=== PATIENT | male | born 1990 | race American Indian/Alaskan Native ===

== ENCOUNTER 2016-09-15 21:55 | Emergency (ER) | payer MEDICAID, OTHER ==
[2016-09-15 22:49] VITALS: BMI 36.9
[2016-09-15 23:02] VITALS: RESP 16; TEMP 98.4
[2016-09-15] MEDS ORDERED: Albuterol-Ipratrop 3 mg / 0.5 (3 ml) UD IH STA (23:03)
[2016-09-15] MEDS ORDERED: Dexamethasone 4 mg/1 ml IVP STA (23:03)
[2016-09-15] MEDS ORDERED: Azithromycin 500MG/NS 250ml 250 ML IVPB STA (23:03)
[2016-09-15] MEDS ORDERED: cefTRIAXone 1 gm 100 ML IVPB STA (23:03)
--- NOTE | 2016-09-15 23:08 | ED PDOC ---
Arrival/HPI - General Chief Complaint: ENT Problem Time Seen by Provider: 09/15/16 23:02 Historian: Patient - History of Present Illness Narrative History of Present Illness (Text): 09/15/16 23:04 26 y/o male, no significant, chronic smoker, nkda, c/o coughing and throat pain x 2 days. Pt. stated that he has excessive coughing with congestion started yesterday, voice started to be gone and throat pain started today, tmax 102F, no recent traveling, no bodyache or joint pain, no rash, no night sweat, no dizziness, no change in vision, no rash, no night sweat, no other medical or psychological complaints. Past Medical History - Provider Review Nursing Documentation Reviewed: Yes - Infectious Disease Hx of Infectious Diseases: None - Tetanus Immunization Tetanus Immunization: Unknown - Past Medical History Past Medical History: No Previous - Cardiac Hx Cardiac Disorders: No - Pulmonary Hx Respiratory Disorders: No - Neurological Hx Neurological Disorder: No - HEENT Hx HEENT Disorder: No - Renal Hx Renal Disorder: No - Endocrine/Metabolic Hx Endocrine Disorders: No - Hematological/Oncological Hx Blood Disorders: No - Integumentary Hx Dermatological Disorder: No - Musculoskeletal/Rheumatological Hx Musculoskeletal Disorders: No - Gastrointestinal Hx Gastrointestinal Disorders: No - Genitourinary/Gynecological Hx Genitourinary Disorders: No - Psychiatric Hx Psychophysiologic Disorder: No Hx Substance Use: No - Past Surgical History Past Surgical History: No Previous - Anesthesia Hx Anesthesia: No - Suicidal Assessment Feels Threatened In Home Enviroment: No Family/Social History - Physician Review Nursing Documentation Reviewed: Yes Family/Social History: Unknown Family HX Smoking Status: Current Some Days Smoker Hx Alcohol Use: Yes Hx Substance Use: No Hx Substance Use Treatment: No Allergies/Home Meds Allergies/Adverse Reactions: Allergies No Known Allergies Allergy (Verified 09/15/16 22:48) Review of Systems - Review of Systems Constitutional: Fevers. absent: Fatigue ENT: Sore Throat. absent: Rhinorrhea, Epistaxis Respiratory: Cough, Sputum. absent: SOB, Wheezing Cardiovascular: absent: Chest Pain, Palpitations, Edema Gastrointestinal: absent: Abdominal Pain, Diarrhea, Nausea, Vomiting Skin: absent: Rash, Pruritis, Skin Lesions Neurological: absent: Headache, Dizziness, Focal Weakness, Gait Changes, Speech Changes, Facial Droop, Disequilibrium, Seizure Physical Exam Vital Signs Reviewed: Yes Vital Signs Temp Pulse Resp BP Pulse Ox 09/15/16 23:01 98.4 F 75 16 124/71 96 Temperature: Afebrile Blood Pressure: Normal Pulse: Regular Respiratory Rate: Normal Appearance: Positive for: Well-Appearing, Non-Toxic, Uncomfortable Pain Distress: Severe Mental Status: Positive for: Alert and Oriented X 3 - Systems Exam Head: Present: Atraumatic, Normocephalic Pupils: Present: PERRL Extroacular Muscles: Present: EOMI Conjunctiva: Present: Normal Ears: Present: NORMAL TM, Normal Canal. No: Erythema Mouth: Present: Moist Mucous Membranes Pharnyx: Present: ERYTHEMA. No: EXUDATE, TONSILS ENLARGED, Peritonsilar Swelling, Uvular Deviation, Muffled/Hoarse Voice, Strider, Soft Palate/Uvular Edema Nose (External): Present: Atraumatic. No: Abrasion, Contusion, Lesions Nose (Internal): Present: Normal Inspection, No Active Bleeding. No: Rhinorrhea , Septal Hematoma, Epistaxis Neck: Present: Normal Range of Motion Respiratory/Chest: Present: Clear to Auscultation, Good Air Exchange, Wheezes, Decreased Breath Sounds, Rhonchi, Other (there is wheezing with decrease aeration and rhonchi on the rt. sided lung). No: Respiratory Distress, Accessory Muscle Use, Rales, Retracting, Tachypneic, Tender to Palpation Cardiovascular: Present: Regular Rate and Rhythm, Normal S1, S2. No: Murmurs Abdomen: Present: Normal Bowel Sounds. No: Tenderness, Distention, Peritoneal Signs Back: Present: Normal Inspection Upper Extremity: Present: Normal Inspection. No: Cyanosis, Edema Lower Extremity: Present: Normal Inspection. No: Edema Neurological: Present: GCS=15, Speech Normal, Motor Func Grossly Intact, Gait Normal, Memory Normal Skin: Present: Warm, Dry, Normal Color. No: Rashes Lymphatic: No: Cervical Adenopathy Psychiatric: Present: Alert, Oriented x 3, Normal Insight, Normal Concentration Medical Decision Making ED Course and Treatment: 09/15/16 23:07 -labs -IVF/toradol/decadron/duoneb -chest x-ray -observe and reassess 09/16/16 00:37 -Labs are non-significant. -Chest x-ray show rt. lower lobe infiltrate. -Wheezing and rhonchi resolved with increased aeration about 1 dose of duoneb, started to talking with voices and feeling much better. -I will start the patient on levaquin as out patient, risk including possible achilles tendon rupture explained to the patient which I advised him no gym or strenuous exercise or activity for 7 days, benefits explained as well, pt. wants to take levaquin compared to other antibiotic. -Discharge home with levaquin, ibuprofen, prelone, promethazine dm, salt water gargling, soft food diet, stay hydrated, follow up with your own pmd and ENT within 2 days, no talking for 2-3 days, return to the ER for any new or worsening signs or symptoms. - Lab Interpretations Lab Results: 09/16/16 00:06 09/16/16 00:06 Lab Results 09/16/16 00:06: WBC 7.0, RBC 5.98, Hgb 14.1, Hct 43.0, MCV 71.9 L, MCH 23.6 L, MCHC 32.8, RDW 15.6 H, Plt Count 224, MPV 9.6, Gran % 34.4 L, Lymph % (Auto) 53.1 H, Rankin % (Auto) 9.5 H, Eos % (Auto) 3.0, Baso % (Auto) 0.0, Gran # 2.41, Lymph # 3.7 H, Rankin # 0.7 H, Eos # 0.2, Baso # 0.00, Sodium 139, Potassium 4.1, Chloride 102, Carbon Dioxide 28, Anion Gap 13, BUN 15, Creatinine 1.1, Est GFR ( Amer) > 60, Est GFR (Non-Af Amer) > 60, Random Glucose 82, Calcium 9.3, Total Bilirubin 0.5, AST 25, ALT 39, Alkaline Phosphatase 86, Total Protein 7.8 , Albumin 4.2, Globulin 3.6, Albumin/Globulin Ratio 1.2 I have reviewed the lab results: Yes Interpretation: No clinic. lab abnormalty - RAD Interpretation Radiology Orders: 09/15/16 23:03 CHEST PORTABLE [RAD] Stat - Medication Orders Current Medication Orders: Discontinued Medications Albuterol/Ipratropium (Duoneb 3 Mg/0.5 Mg (3 Ml) Ud) 3 ml IH STAT STA Stop: 09/15/16 23:04 Dexamethasone (Decadron Inj) 8 mg IVP STAT STA Stop: 09/15/16 23:04 Azithromycin (Zithromax 500mg In Ns) 250 mls @ 167 mls/hr IVPB STAT STA PRN Reason: Protocol Stop: 09/16/16 00:32 Ceftriaxone Sodium (Rocephin 1 Gram Ivpb) 100 mls @ 200 mls/hr IVPB STAT STA PRN Reason: Protocol Stop: 09/15/16 23:32 Ketorolac Tromethamine (Toradol) 30 mg IVP STAT STA Stop: 09/15/16 23:04 - PA / [employer] / Resident Statement / has reviewed & agrees with the documentation as recorded. Disposition/Present on Arrival - Present on Arrival Any Indicators Present on Arrival: No History of DVT/PE: No History of Uncontrolled Diabetes: No Urinary Catheter: No History of Decub. Ulcer: No History Surgical Site Infection Following: None - Disposition Have Diagnosis and Disposition been Completed?: Yes Diagnosis: Laryngitis, Pneumonia Disposition: HOME/ ROUTINE Disposition Time: 23:08 Patient Plan: Discharge Patient Problems: Current Active Problems Problem Status Diagnosed Laryngitis Acute Pneumonia Acute Condition: IMPROVED Discharge Instructions (ExitCare): Bacterial Pneumonia (ED), Laryngitis (ED) Print Language: KHMER Additional Instructions: Discharge home with levaquin, ibuprofen, prelone, promethazine dm, salt water gargling, soft food diet, stay hydrated, follow up with your own pmd and ENT within 2 days, no talking for 2-3 days, return to the ER for any new or worsening signs or symptoms. Prescriptions: Albuterol HFA [Ventolin HFA 90 mcg/actuation (8 g)] 2 puff IH [id number] PRN #1 puff PRN Reason: Other Ibuprofen [Children's Profenib] 30 ml PO QID PRN #300 ml PRN Reason: Other Levofloxacin 30 ml PO DAILY #150 ml Promethazine DM [Phenergan DM Oral Syrup] 5 ml PO QID PRN #150 ml PRN Reason: Other PrednisoLONE [Prelone] 10 ml PO DAILY #40 ml Referrals: [facility] [place] [Outside] - Follow up with primary Tyler Garcia DO [Staff Provider] - Follow up with primary Forms: WORK NOTE
[2016-09-16 00:13] LABS: ADD MANUAL DIFF? NO
[2016-09-16 00:16] LABS: EOS # 0.2 (0.0-0.7); GRAN # 2.41 (1.4-6.5); GRAN % 34.4 % (50.0-68.0); LYMPH # 3.7 (1.2-3.4); LYMPH % 53.1 % (22.0-35.0); MEAN CELL VOLUME 71.9 fL (80.0-105.0); MEAN CORPUSCULAR HEMOGLOBIN 23.6 pg (25.0-35.0); MEAN CORPUSCULAR HGB CONC 32.8 g/dl (31.0-37.0); MEAN PLATELET VOLUME 9.6 fl (7.0-11.0); MONO # 0.7 (0.1-0.6); MONO % 9.5 % (1.0-6.0); PLATELET COUNT 224 10^3/uL (120.0-450.0); RED CELL DISTRIBUTION WIDTH 15.6 % (11.5-14.5)
[2016-09-16 00:27] LABS: ALB/GLOB RATIO 1.2 (1.1-1.8); ALKALINE PHOSPHATASE 86 U/L (38-133); ALT/SGPT 39 U/L (7-56); AST/SGOT 25 U/L (15-59); BILIRUBIN,TOTAL 0.5 mg/dL (0.2-1.3); BLOOD UREA NITROGEN 15 mg/dL (7-21); CALCIUM 9.3 mg/dL (8.4-10.5); CARBON DIOXIDE 28 mmol/L (21-33); CHLORIDE 102 mmol/L (98-107); GFR AFRICAN-AMERICAN > 60; GLUCOSE,RANDOM 82 mg/dL (70-110); POTASSIUM 4.1 mmol/L (3.6-5.0); SODIUM 139 mmol/L (132-148); TOTAL PROTEIN 7.8 g/dL (5.8-8.3)
[2016-09-16 03:22] VITALS: BP 120/67; PULSE 81; O2SAT 97
--- NOTE | 2016-09-16 07:19 | RAD ---
HISTORY: cough COMPARISON: No prior. FINDINGS: LUNGS: Questioned mild right basilar atelectasis PLEURA: No significant pleural effusion identified, no pneumothorax apparent. CARDIOVASCULAR: Normal. OSSEOUS STRUCTURES: No significant abnormalities. VISUALIZED UPPER ABDOMEN: Normal. OTHER FINDINGS: None. IMPRESSION: Questionable mild right basilar atelectasis. Developing infiltrate could be excluded followup radiographs
== END 2016-09-16 02:15 | disposition home or self-care (01) ==
LOC: ED 21:55
DX: J04.0 Acute laryngitis (principal); J18.9 Pneumonia, unspecified organism
CPT/HCPCS: 71010; 80053; 85025; 96374; 96375; 99283; J0456; J0696; J1100; J1885